=== PATIENT | male | born 1955 | race Caucasian/White ===

== ENCOUNTER 2017-07-22 16:48 | Inpatient (IN) | payer BC ==
[~2017-07-22] VITALS: Ht 185.4 cm; Wt 109.8 kg
[2017-07-22 16:48] VITALS: BP_SYST 104
[2017-07-22 17:35] LABS: BASOPHILS # (AUTO) 0.1 K/uL (0.0-0.2); BASOPHILS % (AUTO) 0.8 % (0.0-2.0); EOSINOPHILS # (AUTO) 0.1 K/uL (0.0-0.4); EOSINOPHILS % (AUTO) 0.8 % (0.0-4.0); HEMATOCRIT 29.6 % (36-54); HEMOGLOBIN 10.2 g/dL (14.0-18.0); LYMPHOCYTES # (AUTO) 1.6 K/uL (1.0-5.5); LYMPHOCYTES % (AUTO) 13.5 % (20.5-51.5); MEAN CORPUSCULAR HEMOGLOBIN 42 pg (27-31); MEAN CORPUSCULAR HGB CONC 34 % (32-36); MEAN CORPUSCULAR VOLUME 122 fL (79.0-98.0); MONOCYTES # (AUTO) 1.2 K/uL (0.0-1.0); MONOCYTES % (AUTO) 10.2 % (1.7-9.3); NEUTROPHILS # (AUTO) 9.1 K/uL (1.8-7.7); NEUTROPHILS % (AUTO) 74.7 % (40.0-70.0); PLATELET COUNT (AUTO) 171 K/uL (130-430); RED BLOOD CELL COUNT(AUTO) 2.42 MIL/uL (4.2-6.2); RED CELL DISTRIBUTION WIDTH 14.6 % (9.0-15.0); WHITE BLOOD COUNT (AUTO) 12.1 K/uL (4.8-10.8)
[2017-07-22 17:38] LABS: CALCIUM 8.7 mg/dL (8.4-11.0); CREATININE 1.27 mg/dL (0.55-1.30); POTASSIUM 4.1 mmol/L (3.5-5.1)
[2017-07-22 17:43] LABS: ALBUMIN 2.2 g/dL (3.4-4.8); TOTAL BILIRUBIN 9.5 mg/dL (0.0-1.0)
[2017-07-22] MEDS ORDERED: ONDANSETRON HCL 4 MG/2 ML VIAL IVP ONE (17:45)
[2017-07-22 17:46] LABS: INR 1.8 (0.80-1.20); PROTHROMBIN TIME 20.5 SECS (9.5-12.5)
[2017-07-22] MEDS ORDERED: MORPHINE 2 MG/ML INJ. SYRINGE IVP PRN (20:15)
[2017-07-22] MEDS ORDERED: ONDANSETRON HCL 4 MG/2 ML VIAL IVP PRN (20:15)
[2017-07-22 20:43] VITALS: BP_SYST 119
[2017-07-22 21:24] LABS: APPEARANCE,SPUN,BODY FLUID CLEAR (CLEAR); BF APPEARANCE UNSPUN HAZY (CLEAR); BODY FLUID COLOR DARK YELLOW (LT YELLOW); BODY FLUID SOURCE/ TYPE ASCITES; BODY FLUID TOTAL VOLUME 1150 mL; RBC, BODY FLUID 1094 /uL; SOURCE/TYPE ,BODY FLUID PARACENTESIS; WBC, BODY FLUID 138 /uL
[2017-07-22 21:25] LABS: BODY FLUID OTHER CELLS SECOM %; LYMPHOCYTES, BODY FLUID 25 %; MONOCYTES,BODY FLUID 45 %; NEUTROPHIL, BODY FLUID 30 %
[2017-07-22 23:30] LABS: BODY FLUID GLUCOSE 128 mg/dL
[2017-07-22 23:42] LABS: BODY FLUID TOTAL PROTEIN 1.8 g/dL
[2017-07-22] MEDS: NACL 0.9% 1,000 ML IV SCH (23:58)
[2017-07-23] VITALS: BP_SYST 100
[2017-07-23 03:41] VITALS: BP_SYST 99
[2017-07-23 08:18] VITALS: BP_SYST 110
[2017-07-23] MEDS: NACL 0.9% 1,000 ML IV SCH (11:18)
[2017-07-23] MEDS ORDERED: LORazepam 2 MG/ML VIAL IVP PRN (11:30)
[2017-07-23] MEDS ORDERED: PANTOPRAZOLE SODIUM 40 MG/VIAL (PROTONIX) IVP ONE (11:30)
[2017-07-23 11:31] VITALS: BP_SYST 105
[2017-07-23 12:08] LABS: BASOPHILS # (AUTO) 0.1 K/uL (0.0-0.2); BASOPHILS % (AUTO) 0.6 % (0.0-2.0); EOSINOPHILS # (AUTO) 0.2 K/uL (0.0-0.4); EOSINOPHILS % (AUTO) 1.6 % (0.0-4.0); HEMOGLOBIN 9.8 g/dL (14.0-18.0); LYMPHOCYTES # (AUTO) 1.7 K/uL (1.0-5.5); LYMPHOCYTES % (AUTO) 16.2 % (20.5-51.5); MEAN CORPUSCULAR HEMOGLOBIN 42 pg (27-31); MEAN CORPUSCULAR HGB CONC 34 % (32-36); MEAN CORPUSCULAR VOLUME 124 fL (79.0-98.0); MONOCYTES # (AUTO) 0.9 K/uL (0.0-1.0); MONOCYTES % (AUTO) 8.9 % (1.7-9.3); NEUTROPHILS # (AUTO) 7.3 K/uL (1.8-7.7); NEUTROPHILS % (AUTO) 72.7 % (40.0-70.0); PLATELET COUNT (AUTO) 131 K/uL (130-430); RED BLOOD CELL COUNT(AUTO) 2.35 MIL/uL (4.2-6.2); RED CELL DISTRIBUTION WIDTH 14.7 % (9.0-15.0); WHITE BLOOD COUNT (AUTO) 10.2 K/uL (4.8-10.8)
[2017-07-23] MEDS: BANANA BAG 1 EA, FOLIC ACID 1 MG, THIAMINE HCL 100 MG, MAGNESIUM SULFATE 1 GM, MVI 10 M... IV SCH ×5 (12:15)
[2017-07-23 12:16] LABS: CALCIUM 8.1 mg/dL (8.4-11.0); CREATININE 0.92 mg/dL (0.55-1.30); POTASSIUM 3.7 mmol/L (3.5-5.1)
[2017-07-23 12:23] LABS: ALBUMIN 1.8 g/dL (3.4-4.8); TOTAL BILIRUBIN 10.4 mg/dL (0.0-1.0)
[2017-07-23 15:37] VITALS: BP_SYST 100
[2017-07-23] MEDS ORDERED: DIATR MEGLU/DIATRIZ SOD 30 ML SOLUTION PO ONE (16:54)
[2017-07-23 19:36] LABS: HEMATOCRIT 30.7 % (36-54); HEMOGLOBIN 10.2 g/dL (14.0-18.0)
[2017-07-23] MEDS ORDERED: IOHEXOL 100 ML IV ONE (19:58)
[2017-07-23] MEDS: PANTOPRAZOLE SODIUM 40 MG/VIAL (PROTONIX) IVP SCH (21:33)
[2017-07-23 23:37] VITALS: BP_SYST 101
[2017-07-24 03:21] VITALS: BP_SYST 102
[2017-07-24 03:35] LABS: HEMATOCRIT 27.4 % (36-54); HEMOGLOBIN 9.3 g/dL (14.0-18.0)
[2017-07-24 03:45] LABS: INR 1.7 (0.80-1.20)
[2017-07-24 06:06] LABS: HEPATITIS A AB, IgM Negative (Negative); HEPATITIS B CORE AB, IgM Negative (Negative); HEPATITIS B SURFACE AG Negative (Negative)
[2017-07-24] MEDS: PANTOPRAZOLE SODIUM 40 MG/VIAL (PROTONIX) IVP SCH (08:04)
[2017-07-24 08:16] VITALS: BP_SYST 102
[2017-07-24] MEDS ORDERED: MIDAZOLAM HCL 5 MG/5 ML VIAL ONE ×2 (09:32→09:33)
[2017-07-24] MEDS ORDERED: fentaNYL CITRATE/PF 100 MCG/2 ML AMP ONE ×2 (09:33)
[2017-07-24] MEDS ORDERED: SIMETHICONE 40 MG/0.6 ML ML ONE (10:21)
[2017-07-24] MEDS ORDERED: DIPHENHYDRAMINE INJ 50 MG/ML VIAL ONE (10:30)
[2017-07-24] MEDS ORDERED: PHYTONADIONE 10 MG/ML AMP IM ONE (10:30)
[2017-07-24] MEDS: BANANA BAG 1 EA, FOLIC ACID 1 MG, THIAMINE HCL 100 MG, MAGNESIUM SULFATE 1 GM, MVI 10 M... IV SCH ×5 (11:17)
[2017-07-24 11:25] VITALS: BP_SYST 117
[2017-07-24 12:07] LABS: HEMATOCRIT 28.8 % (36-54); HEMOGLOBIN 9.9 g/dL (14.0-18.0)
[2017-07-24 14:37] VITALS: BP_SYST 122
== END 2017-07-24 15:55 | disposition home or self-care (01) | DRG 378 ==
LOC: SED 16:48 → SMU 19:36
PROVIDERS: ADMIT Internal Medicine Hospice and Palliative Medicine; ATTEND Internal Medicine Hospice and Palliative Medicine
PROC: 30233K1 Transfusion of Nonautologous Frozen Plasma into Peripheral Vein, Percutaneous Approach (ICD-10-PCS; 2017-07-23)
PROC: 30233L1 Transfusion of Nonautologous Fresh Plasma into Peripheral Vein, Percutaneous Approach (ICD-10-PCS; 2017-07-23)
PROC: 0DB68ZX Excision of Stomach, Via Natural or Artificial Opening Endoscopic, Diagnostic (ICD-10-PCS; principal; 2017-07-24 10:30)
DX: K92.1 Melena (principal); D68.9 Coagulation defect, unspecified; K70.31 Alcoholic cirrhosis of liver with ascites; K29.70 Gastritis, unspecified, without bleeding; I85.10 Secondary esophageal varices without bleeding; K20.9 Esophagitis, unspecified; F10.10 Alcohol abuse, uncomplicated; R14.0 Abdominal distension (gaseous)
CPT/HCPCS: 36415; 43239; 49083; 71010; 76700-TC; 80053; 80074; 82947-TC; 83880; 84157-TC; 84484; 85018-TC; 85025; 85610-TC; 85730-TC; 86900; 86901; 87070-TC; 87081; 88305; 88312; 88313; 89051-TC; 89060-TC; 93005; 96374; 99285; C9113; J1200; J2250; J2405; J3010; J3411; J3430; J3475; J3490; J7030; J7040; P9059; Q9964; Q9967